=== PATIENT | female | born 1970 | race Caucasian/White ===

== ENCOUNTER 2022-04-14 09:35 | Day surgery (SDC) | payer OTHER ==
[2022-04-13 15:12] LABS: COVID AG,FIA SOURCE NASAL SWAB
[~2022-04-14] VITALS: Ht 167.6 cm; Wt 97.2 kg
[~2022-04-14 09:35] MED LIST: INSU100V SQ; METF-1211 PO; SODIUM CHLORIDE 0.9% 1,000 ML ONE
[2022-04-14] MEDS ORDERED: PROPOFOL 1% 20 ML VIAL IVP ONE (09:36)
[2022-04-14] MEDS ORDERED: INSU100I26 SQ (10:58)
[2022-04-14] MEDS ORDERED: SODIUM CHLORIDE 0.9% 1,000 ML IV ONE (11:00)
[2022-04-14 11:01] LABS: GLUCOMETER DEV NAME(LOC) SDS.; GLUCOSE,POINT OF CARE 254 MG/DL (70-110)
== END 2022-04-14 13:20 | disposition home or self-care (01) ==
LOC: SURGERY 09:35
PROVIDERS: ATTEND Internal Medicine Gastroenterology
DX: K57.30 Diverticulosis of large intestine without perforation or abscess without bleeding (principal); K64.0 First degree hemorrhoids; E11.9 Type 2 diabetes mellitus without complications; K59.09 Other constipation; Z79.899 Other long term (current) drug therapy; Z98.890 Other specified postprocedural states; Z79.4 Long term (current) use of insulin; Z80.0 Family history of malignant neoplasm of digestive organs
CPT/HCPCS: 45378; 82962; 87426; 88305; C9803; J2704; J7030